=== PATIENT | male | born 2000 | race Two or more races ===

== ENCOUNTER 2021-12-28 19:51 | Emergency (ER) | payer SELFPAY ==
[2021-12-28] MEDS ORDERED: Lidocaine 1% 10 ML MDV INJECT ONE (20:06)
== END 2021-12-28 21:05 | disposition home or self-care (01) ==
LOC: JD.ED 19:51
DX: S71.112A Laceration without foreign body, left thigh, initial encounter (principal); W26.0XXA Contact with knife, initial encounter
CPT/HCPCS: 12002; 99282